=== PATIENT | female | born 1970 | race Caucasian/White ===

== ENCOUNTER 2017-03-11 01:02 | Emergency (ER) | payer BC ==
[2017-03-11] MEDS ORDERED: FLUORESCEIN STRIP 1 MG/STRIP STRIP ONE (01:41)
--- NOTE | 2017-03-11 01:57 | ER NURSING DOCUMENTATION ---
Nurse's Notes [facility] Name:Sarah Vazquez Age:46 yrs Sex:Female :1970 Arrival Date:03/11/2017 Time:01:02 Bed3 Private MD: Diagnosis:Eye Contusion Presentation: 03/11 01:21 Presenting complaint: Patient states: Was laying in bed when hit by decorative piece on mk4 headboard. Right eye pain and edema with small cut. Transition of care: Home. The patient denies any loss of vision. 01:21 Method Of Arrival: Walk In [facility] 01:21 Acuity: VALERIA 4 mk4 Triage Assessment: 01:30 General: Appears in no apparent distress, Behavior is cooperative. Pain: Complains of mk4 pain in right eye. EENT: Eyes edema present.. Neuro: No deficits noted. Cardiovascular: No deficits noted. Respiratory: Airway is patent. GI: No deficits noted. : No deficits noted. Derm: Bruising that is dark purple. Musculoskeletal: No deficits noted. Historical: - Allergies: Codeine; Tetracycline; - Home Meds: 1. None - PMHx: None; - Tetanus: < 10 years. - Ebola Screening: : No symptoms or risks identified at this time. . - Immunization history: Flu Vaccine < 1 year. - Social history: Smoking status: Patient states was never smoker of tobacco. Screenin:35 Infectious Disease Risk None. Abuse screen: Denies threats or abuse. Nutritional mk4 screening: No deficits noted. Assessment: 01:34 See Triage Assessment done by same RN. mk4 Vital Signs: 01:31 BP 131 / 67; Pulse 75; Resp 14; Temp 98.5; Pulse Ox 97% ; Weight 70.31 kg; Height 5 ft. mk4 7 in. (170.18 cm); Pain 7/10; 01:55 BP 129 / 78; Pulse 80; Resp 15; Temp 98.1; Pulse Ox 92% ; Pain 1/10; mk4 01:31 Body Mass Index 24.28 (70.31 kg, 170.18 cm) mk4 Visual Acuity: 01:34 Left Eye Visual acuity 20/40, Pupil size 2 mm, ; Right Eye Visual acuity 20/80, Pupil mk4 size 2 mm, ; Both Eyes Visual acuity 20/40; With Lenses; ED Course: 01:03 Patient arrived in ED. ma1 01:15 Shirin Perez is Primary Nurse. 4 01:21 Casey Cuenca MD is Attending Physician. pat 01:23 Triage completed. 4 01:[address] Cuenca notified. Allergy Band Placed Arm band placed on Bed in [facility] low position Call Light in Reach. Family accompanied patient. 01:35 Valuables sent with patient. [facility] 04:56 Primary Nurse role handed off by Shirin Perez [facility] 04:56 Shirin Perez is Primary Nurse. [facility] Administered Medications: 01:33 Drug: Fluorescein Strip 1 strip; Route: Ophthalmic; Site: right eye; 4 01:54 Drug: ketorolac (PF) Dropperette 0.45 % 1 drops; Route: Ophthalmic; Site: right eye; 4 04:57 Drug: ketorolac (PF) Dropperette 0.45 % 2 drops; {Note: Prepak x 3 dropperettes until mk4 can get RX filled upon returning home in 24 hrs.} Route: Ophthalmic; Site: right eye; Outcome: 01:40 Discharge ordered by . pat 01:55 Discharged to home [facility] 01:55 Condition: good 01:55 Discharge Assessment: Patient awake, alert and oriented x 3. No cognitive and/or functional deficits noted. Patient verbalized understanding of disposition instructions. 01:55 Discharge instructions given to patient, Instructed on discharge instructions, follow up and referral plans. medication usage, Demonstrated understanding of instructions, Prescriptions given X 1. 01:56 Patient left the ED. 4 04:59 Patient left the ED. [facility] 03/12 11:08 Discharge F/U Call: Spoke with: patient. Have you filled your prescriptions? yes. Did lc your discharge instructions answer all of your questions? yes Have you made a f/u appointment? yes Overall Care on a scale of 1-10 with 10 being the best care, you rate our care as: Other comments: symptoms worse, referred to retinal specialist and has appt Signatures: Erin Infante RN RN lc Meyer, John, MD MD jm King, Melody [facility] [place] [facility]
--- NOTE | 2017-03-11 01:57 | ER PHYSICIAN DOCUMENTATION ---
Physician Documentation [facility] Name:Sarah Vazquez Age:46 yrs Sex:Female :1970 Arrival Date:03/11/2017 Time:01:02 Bed3 Private MD: Casey Mccoy Disposition: 03/11/17 01:40 Discharged to Home/Self Care. Impression: Eye Contusion. - Condition is Good. - Discharge Instructions: CONTUSION, Eye. - Prescriptions for Acular 0.5 % Ophthalmic Drops - instill 1 drop by OPHTHALMIC route every 6 hours into affected eye(s); 5 milliliter. - Medical Reconciliation form form. - Follow up: Private Physician; When: ophthomologist; Reason: Recheck today's complaints. - Problem is new. - Symptoms have improved. HPI: 03/11 02:08 This 46 yrs old Female presents to ER via Walk In with complaints of Eye jm Injury. 02:08 The patient sustained contusion, caused by a over the bed light fixture that came jm crashing down and hit her eye/forehead . Onset: The symptom(s)/episode began/occurred just prior to arrival. Associated signs and symptoms: Pertinent positives: headache. Severity of symptoms: in the emergency department the symptoms are unchanged. Pt w some blurry vision. . Historical: - Allergies: Codeine; Tetracycline; - Home Meds: 1. None - PMHx: None; - Tetanus: < 10 years. - Ebola Screening: : No symptoms or risks identified at this time. . - Immunization history: Flu Vaccine < 1 year. - Social history: Smoking status: Patient states was never smoker of tobacco. ROS: 02:08 Eyes: Positive for blurry vision, visual disturbance, Negative for photophobia. jm 02:08 Neck: Negative for injury or acute deformity. 02:08 Abdomen/GI: Negative for nausea, vomiting. 02:08 Skin: Positive for abrasion(s). Exam: 02:08 Visual Acuity: Visual acuity is within normal limits. Pt put on her glasses and both jm eyes are better than 20/20. 02:08 Eyes: Periorbital structures: swelling, abrasion, on the right supraorbital ridge, Pupils: equal, round, and reactive to light and accomodation, Extraocular movements: intact throughout, Conjunctiva: normal, Corneas: abrasion, is not appreciated, foreign body, is not appreciated, a fluorescein strip employed to appreciate the findings, Anterior chamber: no acute changes, no hyphema . Lids and lashes: appear normal, funduscopic exam reveals discs that are sharp, no appreciated papilledema, no retinal detachment. 02:08 Cardiovascular: Rate: normal, Rhythm: regular. 02:08 Respiratory: Respirations: normal, Breath sounds: are normal. Vital Signs: 01:31 BP 131 / 67; Pulse 75; Resp 14; Temp 98.5; Pulse Ox 97% ; Weight 70.31 kg; Height 5 ft. mk4 7 in. (170.18 cm); Pain 7/10; 01:55 BP 129 / 78; Pulse 80; Resp 15; Temp 98.1; Pulse Ox 92% ; Pain 1/10; mk4 01:31 Body Mass Index 24.28 (70.31 kg, 170.18 cm) mk4 Visual Acuity: 01:34 Left Eye Visual acuity 20/40, Pupil size 2 mm, ; Right Eye Visual acuity 20/80, Pupil mk4 size 2 mm, ; Both Eyes Visual acuity 20/40; With Lenses; MDM: 01:21 Patient medically screened. 02:11 Differential diagnosis: supraorbital ridge took most of the brunt as she is very tender jm there and ecchymotic . Pt's eye seems totally fine. She has an optho MD to f/u w in when they return tomorrow. 02:11 Data reviewed: vital signs, nurses notes, and as a result, I will discharge patient. Counseling: I had a detailed discussion with the patient and/or guardian regarding: the historical points, exam findings, and any diagnostic results supporting the discharge/admit diagnosis, the need for outpatient follow up, an opthalmologist. 03/11 01:41 Order name: Ice Packs; Complete Time: 01:54 Dispensed Medications: 01:33 Drug: Fluorescein Strip 1 strip; Route: Ophthalmic; Site: right eye; mk4 01:54 Drug: ketorolac (PF) Dropperette 0.45 % 1 drops; Route: Ophthalmic; Site: right eye; mk4 04:57 Drug: ketorolac (PF) Dropperette 0.45 % 2 drops; {Note: Prepak x 3 dropperettes until mk4 can get RX filled upon returning home in 24 hrs.} Route: Ophthalmic; Site: right eye; Signatures: Casey Cuenca MD MD jm King, Melody mk4
[2017-03-11] MEDS ORDERED: KETOROLAC 0.45% OPHTH 1 DROP/EACH DROPERETTE ONE ×2 (02:01→02:07)
== END 2017-03-11 05:00 | disposition home or self-care (01) ==
LOC: ER 01:02
DX: S05.11XA Contusion of eyeball and orbital tissues, right eye, initial encounter (principal); S00.11XA Contusion of right eyelid and periocular area, initial encounter; S00.211A Abrasion of right eyelid and periocular area, initial encounter; W20.8XXA Other cause of strike by thrown, projected or falling object, initial encounter; Y92.59 Other trade areas as the place of occurrence of the external cause
CPT/HCPCS: 99283